=== PATIENT | female | born 1985 | race American Indian/Alaskan Native ===

== ENCOUNTER 2018-06-22 19:48 | Emergency (ER) | payer SELFPAY ==
[2018-06-22 20:03] VITALS: BP 127/85
[2018-06-22] MEDS ORDERED: NORCO 5/325 ONE (20:23)
[2018-06-22] MEDS ORDERED: NORCO 5/325 PO ONE (20:25)
[2018-06-22] MEDS ORDERED: TRIMOX PO ONE (20:56)
--- NOTE | 2018-06-22 21:04 | Emergency Department Report ---
ED ENT HPI - General Chief complaint: Dental/Oral Stated complaint: TOOTHACHE Time Seen by Provider: 06/22/18 20:52 Source: patient Mode of arrival: Ambulatory Limitations: No Limitations - History of Present Illness Initial comments: 32-year-old [place] female presents to the emergency room for right- sided tooth pain 2 days. Patient reports that she has tried T [place], Goody powders, BC powders, ibuprofen and something for tooth pain [id number] from [employer]. Patient reports there is no relief in pain as a 10 out of 10. Patient reports no known drug allergies. -: days(s) (2) Severity: severe Severity scale (0 -10): 10 Quality: stabbing, aching, sharp Consistency: constant Improves with: none Worsens with: eating Associated Symptoms: denies: fever, cough - Related Data Previous Rx's Medication Instructions Recorded Last Taken Type Amoxicillin [Amoxicillin TAB] 875 mg PO BID 10 Days #20 tablet 06/22/18 Unknown Rx Ibuprofen [Motrin 800 MG tab] 800 mg PO Q8HR PRN #30 tablet 06/22/18 Unknown Rx traMADol [Ultram 50 MG tab] 50 mg PO Q4HR PRN #12 tablet 06/22/18 Unknown Rx Allergies Allergy/AdvReac Type Severity Reaction Status Date / Time No Known Allergies Allergy Verified 06/22/18 20:27 ED Dental HPI - General Chief complaint: Dental/Oral Stated complaint: TOOTHACHE Time Seen by Provider: 06/22/18 20:52 Source: patient Mode of arrival: Ambulatory Limitations: No Limitations - Related Data Previous Rx's Medication Instructions Recorded Last Taken Type Amoxicillin [Amoxicillin TAB] 875 mg PO BID 10 Days #20 tablet 06/22/18 Unknown Rx Ibuprofen [Motrin 800 MG tab] 800 mg PO Q8HR PRN #30 tablet 06/22/18 Unknown Rx traMADol [Ultram 50 MG tab] 50 mg PO Q4HR PRN #12 tablet 06/22/18 Unknown Rx Allergies Allergy/AdvReac Type Severity Reaction Status Date / Time No Known Allergies Allergy Verified 06/22/18 20:27 ED Review of Systems ROS: Stated complaint: TOOTHACHE Other details as noted in HPI Constitutional: denies: chills, fever ENT: dental pain ED Past Medical Hx - Past Medical History Previous Medical History?: No - Surgical History Past Surgical History?: Yes Hx Appendectomy: Yes (2000) - Social History Smoking Status: Never Smoker - Medications Home Medications: Home Medications Medication Instructions Recorded Confirmed Last Taken Type Amoxicillin [Amoxicillin TAB] 875 mg PO BID 10 Days #20 tablet 06/22/18 Unknown Rx Ibuprofen [Motrin 800 MG tab] 800 mg PO Q8HR PRN #30 tablet 06/22/18 Unknown Rx traMADol [Ultram 50 MG tab] 50 mg PO Q4HR PRN #12 tablet 06/22/18 Unknown Rx ED Physical Exam - General Limitations: No Limitations General appearance: alert, in no apparent distress - Head Head exam: Present: atraumatic, normocephalic, other (right lower jaw with swelling) - Eye Eye exam: Present: EOMI - ENT ENT exam: Present: mucous membranes moist - Expanded ENT Exam Expanded Teeth exam: Present: dental caries, dental tenderness # (32), gingival enlargement ED Course Vital Signs 06/22/18 06/22/18 19:56 20:17 Temperature 99.7 F H 99.7 F H Pulse Rate 106 H 100 H Respiratory 18 18 Rate Blood Pressure 127/85 127/85 O2 Sat by Pulse 100 99 Oximetry ED Medical Decision Making - Medical Decision Making Patient has been evaluated by this provider fast track. Patient has been given [place] for pain management. Patient has been given amoxicillin 1000 mg to start for antibiotics. Patient be referred to a dentist given a list for free clinics. Would discharge patient on amoxicillin 875 twice a day 10 days. As well as ibuprofen 800 mg. An trauma and off 50 mg. Critical care attestation.: If time is entered above; I have spent that time in minutes in the direct care of this critically ill patient, excluding procedure time. ED Disposition Clinical Impression: Dental abscess Disposition: DC- TO HOME OR SELFCARE Is pt being admited?: No Does the pt Need Aspirin: No Condition: Stable Instructions: Dental Abscess (ED) Additional Instructions: Please complete antibiotics as prescribed. Pain medication as needed. Follow- up with the dentist as soon as possible. Prescriptions: Amoxicillin [Amoxicillin TAB] 875 mg PO BID 10 Days #20 tablet Ibuprofen [Motrin 800 MG tab] 800 mg PO Q8HR PRN #30 tablet PRN Reason: Pain , Severe (7-10) traMADol [Ultram 50 MG tab] 50 mg PO Q4HR PRN #12 tablet PRN Reason: Pain Referrals: PRIMARY CARE, [Primary Care Provider] - 3-5 Days [facility] [Outside] - 3-5 Days [facility] [Outside] - 3-5 Days [facility] [Provider Group] - 3-5 Days Forms: Work/School Release Form(ED)
== END 2018-06-22 21:23 | disposition home or self-care (01) ==
LOC: ED 19:48
DX: K04.7 Periapical abscess without sinus (principal); Z90.89 Acquired absence of other organs
CPT/HCPCS: 99282

== ENCOUNTER 2019-08-23 04:05 | Emergency (ER) | payer MEDICAID ==
[2019-08-23 04:12] VITALS: BP 111/72
--- NOTE | 2019-08-23 04:41 | Emergency Department Report ---
ED ENT HPI - General Chief complaint: Dental/Oral Stated complaint: TOOTHACHE/POSS INFECTION Time Seen by Provider: 08/23/19 04:25 Source: patient Mode of arrival: Ambulatory Limitations: No Limitations - History of Present Illness Initial comments: Patient is a 33-year-old female presents emergency room with complaints of right lower dental pain that began 3 days ago. She states that she broke the tooth several months ago. Patient has not seen a dentist. She denies any fever or vomiting. pt is tolerating by mouth intake. She denies any past medical history or allergies medications. Last menstrual cycle was [id number]. - Related Data Previous Rx's Medication Instructions Recorded Last Taken Type Amoxicillin [Amoxicillin TAB] 875 mg PO BID 10 Days #20 tablet 06/22/18 Unknown Rx Ibuprofen [Motrin 800 MG tab] 800 mg PO Q8HR PRN #30 tablet 06/22/18 Unknown Rx traMADol [Ultram 50 MG tab] 50 mg PO Q4HR PRN #12 tablet 06/22/18 Unknown Rx Amoxicillin 500 mg PO QID #40 capsule 10/30/18 Unknown Rx Lidocaine Viscous 2% 5 ml MM Q3H PRN #120 udc 10/30/18 Unknown Rx Acetaminophen/Codeine [Tylenol 1 tab PO Q6H PRN #12 tab 12/15/18 Unknown Rx /Codeine # 3 tab] Clindamycin [Clindamycin CAP] 300 mg PO Q8H 10 Days #30 cap 12/15/18 Unknown Rx Ibuprofen [Motrin 600 MG tab] 600 mg PO Q8H PRN #14 tablet 08/23/19 Unknown Rx Penicillin Vk [Veetids TAB] 500 mg PO QID 7 Days #56 tablet 08/23/19 Unknown Rx Allergies Allergy/AdvReac Type Severity Reaction Status Date / Time No Known Allergies Allergy Verified 06/22/18 20:27 ED Dental HPI - General Chief complaint: Dental/Oral Stated complaint: TOOTHACHE/POSS INFECTION Time Seen by Provider: 08/23/19 04:25 Source: patient Mode of arrival: Ambulatory Limitations: No Limitations - Related Data Previous Rx's Medication Instructions Recorded Last Taken Type Amoxicillin [Amoxicillin TAB] 875 mg PO BID 10 Days #20 tablet 06/22/18 Unknown Rx Ibuprofen [Motrin 800 MG tab] 800 mg PO Q8HR PRN #30 tablet 06/22/18 Unknown Rx traMADol [Ultram 50 MG tab] 50 mg PO Q4HR PRN #12 tablet 06/22/18 Unknown Rx Amoxicillin 500 mg PO QID #40 capsule 10/30/18 Unknown Rx Lidocaine Viscous 2% 5 ml MM Q3H PRN #120 udc 10/30/18 Unknown Rx Acetaminophen/Codeine [Tylenol 1 tab PO Q6H PRN #12 tab 12/15/18 Unknown Rx /Codeine # 3 tab] Clindamycin [Clindamycin CAP] 300 mg PO Q8H 10 Days #30 cap 12/15/18 Unknown Rx Ibuprofen [Motrin 600 MG tab] 600 mg PO Q8H PRN #14 tablet 08/23/19 Unknown Rx Penicillin Vk [Veetids TAB] 500 mg PO QID 7 Days #56 tablet 08/23/19 Unknown Rx Allergies Allergy/AdvReac Type Severity Reaction Status Date / Time No Known Allergies Allergy Verified 06/22/18 20:27 ED Review of Systems ROS: Stated complaint: TOOTHACHE/POSS INFECTION Other details as noted in HPI Comment: All other systems reviewed and negative ED Past Medical Hx - Past Medical History Previous Medical History?: No - Surgical History Past Surgical History?: Yes Hx Appendectomy: Yes (2000) - Social History Smoking Status: Former Smoker Substance Use Type: None - Medications Home Medications: Home Medications Medication Instructions Recorded Confirmed Last Taken Type Amoxicillin [Amoxicillin TAB] 875 mg PO BID 10 Days #20 tablet 06/22/18 Unknown Rx Ibuprofen [Motrin 800 MG tab] 800 mg PO Q8HR PRN #30 tablet 06/22/18 Unknown Rx traMADol [Ultram 50 MG tab] 50 mg PO Q4HR PRN #12 tablet 06/22/18 Unknown Rx Amoxicillin 500 mg PO QID #40 capsule 10/30/18 Unknown Rx Lidocaine Viscous 2% 5 ml MM Q3H PRN #120 udc 10/30/18 Unknown Rx Acetaminophen/Codeine [Tylenol 1 tab PO Q6H PRN #12 tab 12/15/18 Unknown Rx /Codeine # 3 tab] Clindamycin [Clindamycin CAP] 300 mg PO Q8H 10 Days #30 cap 12/15/18 Unknown Rx Ibuprofen [Motrin 600 MG tab] 600 mg PO Q8H PRN #14 tablet 08/23/19 Unknown Rx Penicillin Vk [Veetids TAB] 500 mg PO QID 7 Days #56 tablet 08/23/19 Unknown Rx ED Physical Exam - General Limitations: No Limitations General appearance: alert, in no apparent distress - Head Head exam: Present: atraumatic, normocephalic - Eye Eye exam: Present: normal appearance - ENT ENT exam: Present: normal orophraynx, mucous membranes moist, other (cracked tooth present at tooth number 32, small amount of edema to the gum no fluctuance, no obvious dental abscess, no obvious facial cellulitis) - Neurological Exam Neurological exam: Present: alert, oriented X3 - Psychiatric Psychiatric exam: Present: normal affect, normal mood - Skin Skin exam: Present: warm, dry, intact ED Course Vital Signs 08/23/19 04:09 Temperature 98.1 F Pulse Rate 88 Respiratory 18 Rate Blood Pressure 111/72 O2 Sat by Pulse 99 Oximetry ED Medical Decision Making - Medical Decision Making Patient is a 33-year-old female presents emergency room with complaints of right lower dental pain that began 3 days ago. She states that she broke the tooth s everal months ago. Patient has not seen a dentist. She denies any fever or vomiting. pt is tolerating by mouth intake. She denies any past medical history or allergies medications. Last menstrual cycle was [id number]. vitals are normal. on exam: cracked tooth present at tooth number 32, small amount of edema to the gum no fluctuance, no obvious dental abscess, no obvious facial cellulitis. could have early dental infection. pt given prescription for penicillin vk so she can have the tooth extracted by a dentist and ibuprofen for pain. advised pt to Please take medication as prescribed. please follow-up with a dentist in the next 3 days. It is very important you follow-up with a dentist for permanent solution. given a list of dental clinics. Return to the emergency room for any new or worsening symptoms. Critical care attestation.: If time is entered above; I have spent that time in minutes in the direct care of this critically ill patient, excluding procedure time. ED Disposition Clinical Impression: Dental caries, Cracked tooth Disposition: DC-01 TO HOME OR SELFCARE Is pt being admited?: No Does the pt Need Aspirin: No Condition: Stable Instructions: Dental Caries (ED) Additional Instructions: Please take medication as prescribed. please follow-up with a dentist in the next 3 days. It is very important you follow-up with a dentist for permanent s olution. given a list of dental clinics. Return to the emergency room for any new or worsening symptoms. Prescriptions: Ibuprofen [Motrin 600 MG tab] 600 mg PO Q8H PRN #14 tablet PRN Reason: Pain Penicillin Vk [Veetids TAB] 500 mg PO QID 7 Days #56 tablet Referrals: [facility] [Outside] - 2-3 Days Time of Disposition: 04:41 Print Language: CZECH
== END 2019-08-23 04:53 | disposition home or self-care (01) ==
LOC: ED 04:05
DX: K04.7 Periapical abscess without sinus (principal); K03.81 Cracked tooth; Z90.49 Acquired absence of other specified parts of digestive tract; Z87.891 Personal history of nicotine dependence; Z79.899 Other long term (current) drug therapy
CPT/HCPCS: 99282

== ENCOUNTER 2021-06-04 07:41 | Emergency (ER) | payer MEDICAID ==
[2021-06-04 08:09] VITALS: BP 119/76
--- NOTE | 2021-06-04 08:15 | Emergency Department Report ---
ED ENT HPI - General Chief complaint: Dental/Oral Stated complaint: SEVERE TOOTH ACHE Time Seen by Provider: 06/04/21 08:07 Source: patient Mode of arrival: Ambulatory Limitations: No Limitations - History of Present Illness Initial comments: 35-year-old -[place] female presents to the emergency room for 3-day history of right upper back tooth pain and now swelling this morning. Patient states that it is going to be several weeks to a month before she can get to the dentist. Patient states is been taken Advil without much relief. Past medical history currently takes no medications on a daily basis MD complaint: tooth pain Onset/Timin -: days(s) Severity: severe Severity scale (0 -10): 10 Quality: stabbing, aching, sharp Consistency: constant Improves with: none Worsens with: none Context- Dental: history of dental caries Associated Symptoms: gum swelling - Related Data Previous Rx's Medication Instructions Recorded Last Taken Type Amoxicillin [Amoxicillin TAB] 875 mg PO BID 10 Days #20 tablet 06/22/18 Unknown Rx Amoxicillin 500 mg PO QID #40 capsule 10/30/18 Unknown Rx Lidocaine Viscous 2% 5 ml MM Q3H PRN #120 udc 10/30/18 Unknown Rx Acetaminophen/Codeine [Tylenol 1 tab PO Q6H PRN #12 tab 12/15/18 Unknown Rx /Codeine # 3 tab] Clindamycin [Clindamycin CAP] 300 mg PO Q8H 10 Days #30 cap 12/15/18 Unknown Rx Ibuprofen [Motrin 600 MG tab] 600 mg PO Q8H PRN #14 tablet 08/23/19 Unknown Rx Ibuprofen [Motrin 800 MG tab] 800 mg PO Q8HR PRN #30 tablet 06/04/21 Unknown Rx Penicillin Vk [Veetids TAB] 500 mg PO QID 7 Days #56 tablet 06/04/21 Unknown Rx traMADoL [Ultram 50 MG tab] 50 mg PO Q4HR PRN #12 tablet 06/04/21 Unknown Rx Allergies Allergy/AdvReac Type Severity Reaction Status Date / Time No Known Allergies Allergy Verified 06/22/18 20:27 ED Dental HPI - General Chief complaint: Dental/Oral Stated complaint: SEVERE TOOTH ACHE Time Seen by Provider: 06/04/21 08:07 Source: patient Mode of arrival: Ambulatory Limitations: No Limitations - Related Data Previous Rx's Medication Instructions Recorded Last Taken Type Amoxicillin [Amoxicillin TAB] 875 mg PO BID 10 Days #20 tablet 06/22/18 Unknown Rx Amoxicillin 500 mg PO QID #40 capsule 10/30/18 Unknown Rx Lidocaine Viscous 2% 5 ml MM Q3H PRN #120 udc 10/30/18 Unknown Rx Acetaminophen/Codeine [Tylenol 1 tab PO Q6H PRN #12 tab 12/15/18 Unknown Rx /Codeine # 3 tab] Clindamycin [Clindamycin CAP] 300 mg PO Q8H 10 Days #30 cap 12/15/18 Unknown Rx Ibuprofen [Motrin 600 MG tab] 600 mg PO Q8H PRN #14 tablet 08/23/19 Unknown Rx Ibuprofen [Motrin 800 MG tab] 800 mg PO Q8HR PRN #30 tablet 06/04/21 Unknown Rx Penicillin Vk [Veetids TAB] 500 mg PO QID 7 Days #56 tablet 06/04/21 Unknown Rx traMADoL [Ultram 50 MG tab] 50 mg PO Q4HR PRN #12 tablet 06/04/21 Unknown Rx Allergies Allergy/AdvReac Type Severity Reaction Status Date / Time No Known Allergies Allergy Verified 06/22/18 20:27 ED Review of Systems ROS: Stated complaint: SEVERE TOOTH ACHE Other details as noted in HPI Comment: All other systems reviewed and negative ED Past Medical Hx - Past Medical History Previous Medical History?: No - Surgical History Past Surgical History?: Yes Hx Appendectomy: Yes (2000) - Social History Smoking Status: Never Smoker Substance Use Type: None - Medications Home Medications: Home Medications Medication Instructions Recorded Confirmed Last Taken Type Amoxicillin [Amoxicillin TAB] 875 mg PO BID 10 Days #20 tablet 06/22/18 Unknown Rx Amoxicillin 500 mg PO QID #40 capsule 10/30/18 Unknown Rx Lidocaine Viscous 2% 5 ml MM Q3H PRN #120 udc 10/30/18 Unknown Rx Acetaminophen/Codeine [Tylenol 1 tab PO Q6H PRN #12 tab 12/15/18 Unknown Rx /Codeine # 3 tab] Clindamycin [Clindamycin CAP] 300 mg PO Q8H 10 Days #30 cap 12/15/18 Unknown Rx Ibuprofen [Motrin 600 MG tab] 600 mg PO Q8H PRN #14 tablet 08/23/19 Unknown Rx Ibuprofen [Motrin 800 MG tab] 800 mg PO Q8HR PRN #30 tablet 06/04/21 Unknown Rx Penicillin Vk [Veetids TAB] 500 mg PO QID 7 Days #56 tablet 06/04/21 Unknown Rx traMADoL [Ultram 50 MG tab] 50 mg PO Q4HR PRN #12 tablet 06/04/21 Unknown Rx ED Physical Exam - General Limitations: No Limitations General appearance: alert, in no apparent distress - Head Head exam: Present: atraumatic, normocephalic - Eye Eye exam: Present: EOMI - ENT ENT exam: Present: mucous membranes moist, other (Right upper facial swelling) - Expanded ENT Exam Expanded Mouth exam: Absent: drooling, trismus, muffled voice Teeth exam: Present: dental tenderness #, gingival enlargement - Neck Neck exam: Present: normal inspection, full ROM - Respiratory Respiratory exam: Absent: respiratory distress, accessory muscle use - Cardiovascular Cardiovascular Exam: Present: regular rate - Extremities Exam Extremities exam: Present: normal inspection, full ROM - Back Exam Back exam: Present: normal inspection, full ROM - Neurological Exam Neurological exam: Present: alert, oriented X3, normal gait - Psychiatric Psychiatric exam: Present: normal affect, normal mood. Absent: depressed, agitated - Skin Skin exam: Present: warm, dry, intact, normal color. Absent: rash ED Course Vital Signs 06/04/21 08:08 Temperature 98.7 F Pulse Rate 75 Respiratory 18 Rate Blood Pressure 119/76 O2 Sat by Pulse 100 Oximetry ED Medical Decision Making - Medical Decision Making 35-year-old -Hung[place] female presents to the emergency room for 3-day history of right upper back tooth pain and now swelling this morning. Patient states that it is going to be several weeks to a month before she can get to the dentist. Patient states is been taken Advil without much relief. Past medical history currently takes no medications on a daily basis Patient has a dental abscess we will place her in penicillin VK and a referral to dentistry. Patient continue with ibuprofen Tylenol or naproxen. Critical care attestation.: If time is entered above; I have spent that time in minutes in the direct care of this critically ill patient, excluding procedure time. ED Disposition Clinical Impression: Dental abscess Disposition: TO HOME OR SELFCARE Is pt being admited?: No Does the pt Need Aspirin: No Condition: Stable Instructions: Dental Abscess, [id number] Additional Instructions: Complete antibiotics as prescribed pain medication as needed. Do not operate heavy machinery while taking tramadol. Is very important you follow-up with a dentist in the next 7 to 10 days. Prescriptions: Ibuprofen [Motrin 800 MG tab] 800 mg PO Q8HR PRN #30 tablet PRN Reason: Pain , Severe (7-10) traMADoL [Ultram 50 MG tab] 50 mg PO Q4HR PRN #12 tablet PRN Reason: Pain Penicillin Vk [Veetids TAB] 500 mg PO QID 7 Days #56 tablet [facility] [Outside] - 3-5 Days Forms: Work/School Release Form(ED) Time of Disposition: 08:16
== END 2021-06-04 08:55 | disposition home or self-care (01) ==
LOC: ED 07:41
DX: K04.7 Periapical abscess without sinus (principal)
CPT/HCPCS: 99282